=== PATIENT | male | born 2000 | race Caucasian/White ===

== ENCOUNTER 2021-04-12 18:21 | Emergency (ER) | payer MEDICAID, SELFPAY ==
--- NOTE | 2021-04-12 18:15 | RT.EKG_ITS ---
APPROVED REPORT Exam: Resting ECG Reason for Exam: syncope Patient Location: E HR:83 bpm ECG Measurements Heart Rate 83 AXIS VT 157 P 66 QRSd 91 QRS 83 QT 371 T 63 QTc 435 Conclusion Sinus rhythm early repol pattern.
[2021-04-12 18:22] VITALS: BP 114/66; PULSE 82; RESP 18; TEMP 37.1; O2SAT 100
--- NOTE | 2021-04-12 18:34 | ED.GENADUL_ITS ---
Discharge Plan Disposition Patient Disposition: HOME Condition: Improving Discharge Details Clinical Impression: Syncope Primary Care Provider: Unknown,Unknown ED Provider: Manjinder Pollack Home Meds and New Rx's Prescriptions: No Action No Known Home Meds RF: 0 Discharge Instructions Instructions: Syncope (ED) Additional Instructions: Home to rest this evening. Small, frequent fluids to maintain good hydration. Your work-up in the emergency department tonight included a chest x-ray, EKG, and blood work including cardiac troponin. You had a strep test that was negative. You underwent Covid PCR testing which is pending. We will call you with your results. Medical Decision Making <Manjinder Pollack MD - Last Filed: 04/12/21 19:51> 20-year-old male presents from home via EMS. He has had a sore throat for 2 to 3days general malaise, but has not had a cough or shortness of breath. Denies change to taste or smell. He was pouring some tea at home when he felt lightheaded and sank to ground. Did not have any seizure like activity, no tongue biting was reported, no loss of bowel continence, and he denies chest pain, palpitations, or shortness of breath. Patient arrives ER improved, alert and interactive. His vital signs are unremarkable. IV fluid bolus initiated, screening EKG obtained patient for laboratory testing. White blood cell count is 3.6, hematocrit 35.7, platelets 121. Chemistries reassuring, BUN 10, creatinine 1.1. Troponin negative. SARS-CoV-2 pending. Chest x-ray without evidence of cardiomegaly. No acute disease. Please see the formal radiology report Patient is stable and improving. Consistent with vagal mediated syncope. Do not feel further work-up is required at this time. <Sam Diaz MD - Last Filed: 04/12/21 21:26> Care was signed out by Dr. Pollack with plan to follow-up on urinalysis and discharge patient with outpatient follow-up. UA was reviewed and does have a few ketones which I suspect is secondary to dehydration. He did have a mild anion gap on initial blood work. Patient received IVF and is tolerating oral fluids. He was encouraged to continue to maintain adequate hydration. On reassessment, patient feeling much better. BP improved. Disposition decision was made weighing the risks and benefits of hospitalization versus outpatient treatment, the risk for further decompensation, and the patient's wishes. The patient was stable and requested discharge. Prior to discharge, my usual and customary return precautions were reviewed with the patient - this included follow-up instructions and reason to return to the emergency department if condition worsens, does not improve as expected, or other new concerns arise. HPI <Manjinder Pollack MD - Last Filed: 04/12/21 19:51> General Mode of arrival: EMS . Date/Time Provider Initiated Documentation: 04/12/21 18:22 . Limitations to Documentation: no limitations . Information obtained by: patient and EMS . History of Present Illness 20 year old M presents to the emergency department with the chief complaint of Sore throat and syncopal event at home, described as moderate, Quality is described as constant, and is localized to the mouth. Patient reports no r adiation. Patient started experiencing this day(s) and it has been constant. No relieving factors improve symptom(s), No exacerbating factors reported . Patient notes denies chest pain, cough, fever/chills, headaches, loss of appetite, nausea/vomiting, shortness of breath and weakness. Patient did receive the following treatments prior to arrival, none Related Data Home Medications Medication Instructions Recorded Confirmed Unknown [No Known Home Meds] 04/12/21 04/12/21 Allergies Allergy/AdvReac Type Severity Reaction Status Date / Time No Known Allergies Allergy Unverified 04/12/21 19:05 General Stated Complaint: Dizzy/Sync SHANT: 3 Review of Systems <Manjinder Pollack MD - Last Filed: 04/12/21 19:51> Narrative: 6 systems reviewed and otherwise negative PFSH <Manjinder Pollack MD - Last Filed: 04/12/21 19:51> All Active Problems (Updated 04/12/21 @ 19:28 by Manjinder Pollack MD) Syncope (Chronic) Social History Smoking/Tobacco Use Status: Never Smoking risk assessment performed?: Yes Alcohol Intake: never Drug use: Never Substance use type: does not use Do you feel safe at home: Yes Do you feel safe in your relationship?: Yes Exam <Manjinder Pollack MD - Last Filed: 04/12/21 19:51> Narrative Exam Narrative: GEN: awake, alert, oriented 3. Pleasant, well groomed, interactive. HEAD: Normocephalic, atraumatic ENT: Mucous membranes dry, oropharynx with note of mild erythema of the tonsillar pillars, no swelling, no exudate, tympanic membranes occluded by cerumen bilaterally, External ear exam unremarkable EYES: PERRL, EOMI NECK: Full ROM, no CAPRICE, no menigismus CHEST/RESP: Nontender, clear to auscultation bilateral, no wheeze/rhonchi/rales CARDIOVASCULAR: RRR, no murmur, rub tex. 2+ Rad pulse bilateral ABDOMEN: Soft, nontender, no mass. +Bowel sounds EXT: Full ROM, no edema, no rash Neuro: Grossly normal neurologic exam, conversant, interactive. Psych: Speech fluent, thoughts congruent, affect normal Course <Manjinder Pollack MD - Last Filed: 04/12/21 19:51> Vital Signs Vital signs: Vital Signs Temperature 37.1 C 04/12/21 18:22 Pulse 82 04/12/21 18:22 Respiratory Rate 18 04/12/21 18:22 Blood Pressure 114/66 04/12/21 18:22 Pulse Oximetry 100 04/12/21 18:22 Temperature 37.1 C 04/12/21 18:22 Temperature Source Tympanic 04/12/21 18:22 Pulse 82 04/12/21 18:22 Respiratory Rate 18 04/12/21 18:22 Respiratory Effort 04/12/21 18:26 Respiratory Depth Normal 04/12/21 18:26 Respiratory Pattern Normal 04/12/21 18:26 Blood Pressure 114/66 04/12/21 18:22 Blood Pressure Position Supine 04/12/21 18:22 Pulse Oximetry 100 04/12/21 18:22 Oxygen Delivery Method Room Air 04/12/21 18:22 Oxygen Flow Rate 0 04/12/21 18:22 Pain Level 3 04/12/21 18:22
[2021-04-12 18:46] LABS: Abs Immature Grans 0.01 10^3/uL (0.0-0.06); Absolute Basophil Count 0.02 10^3/uL (0.0-0.2); Absolute Eosinophil Count 0.02 10^3/uL (0.0-0.7); Absolute Lymphocyte Count 0.87 10^3/uL (1.2-3.4); Absolute Monocyte Count 0.47 10^3/uL (0.1-0.8); Absolute Neutrophil Count 2.26 10^3/uL (1.2-6.7); Basophils % 0.5; Eosinophils % 0.5; HCT 35.7 % (40.0-50.0); HGB 11.7 g/dL (13.5-17.5); Immature Grans % 0.3; Lymphocytes % 23.8; MCH 28.7 pg (27.0-33.0); MCHC 32.8 % (32.0-36.0); MCV 87.5 fL (80-95); MPV 11.3 fL (8.0-11.0); Monocytes % 12.9; Nucleated RBC 0 %; Platelet Count 121 10^3/uL (130-400); RBC 4.08 10^6/uL (4.36-5.78); RDW 12.8 % (11.8-14.1); RDW-SD 41.2 fL; WBC 3.65 10^3/uL (4.4-10.8)
--- NOTE | 2021-04-12 19:00 | DI.RAD_ITS ---
Exam(s) XR PORTABLE CHEST AP EXAM: XR PORTABLE CHEST AP CLINICAL HISTORY: syncope TECHNIQUE: 2D digital imaging was performed of the chest. One image was obtained. An AP view was ob tained. COMPARISON: No exams were available for comparison FINDINGS: MEDIASTINUM: Normal. HEART: Normal. PULMONARY VASCULATURE: Normal. LUNGS: Clear. PLEURAL SPACE: No pleural effusion or pneumothorax. BONE:Within normal limits for the patient's age. OTHER FINDINGS:Normal. IMPRESSION: No acute pulmonary findings. DATA REPOSITORY: RADIATION DOSE DELIVERED:
[2021-04-12 19:06] LABS: ALT 27 U/L (16-63); AST 19 U/L (15-37); Albumin 3.8 g/dL (3.4-5.0); Alkaline Phosphatase 52 U/L (46-116); Anion Gap 12.3 mmol/L (3-11); BUN 10 mg/dL (7-18); Bilirubin, Total 0.5 mg/dL (0.2-1.0); CO2 21.7 mmol/L (21.0-32.0); CREATININE 1.1 mg/dL (0.70-1.30); Calcium 7.9 mg/dL (8.5-10.1); Chloride 105 mmol/L (98-107); Glucose 112 mg/dL (74-106); Magnesium 1.9 mg/dL (1.8-2.4); Potassium 3.7 mmol/L (3.5-5.1); Sodium 139 mmol/L (136-145); Total Protein 6.8 g/dL (6.4-8.2); Troponin I < 50 ng/L (<or=60)
[2021-04-12 19:23] VITALS: BP 115/67; PULSE 76; RESP 18; O2SAT 99
--- NOTE | 2021-04-12 19:50 | DI.VRAD_ITS ---
PROCEDURE INFORMATION: Exam: XR Chest Exam date and time: 04/12/2021 7:10 PM Age: 20 years old Clinical indication: Other: Syncope TECHNIQUE: Imaging protocol: XR of the chest. Views: 1 view. COMPARISON: No relevant prior studies available. FINDINGS: Lungs: The lungs are minimally hyperinflated likely due to large inspiratory effort. No infiltrate. Pleural spaces: No pleural effusion or pneumothorax. Heart/Mediastinum: There is a normal heart size, left descending thoracic aorta and midline trachea. Bones/joints: No acute osseous injury or underlying osseous mass. There is gentle leftward curvature of the thoracolumbar spine. IMPRESSION: No acute cardiopulmonary findings. Dictated and Authenticated by: Joce Collier MD. Ordering:THONY Dunbar MD
[2021-04-12 20:13] LABS: Bilirubin Negative (Negative); Blood Negative (Negative); Clarity Clear (Clear); Glucose Negative (Negative); Ketones 15 mg/dL (Negative); Leukocyte Esterase Negative (Negative); Nitrite Negative (Negative); Specific Gravity >= 1.030 (1.005-1.025); Urobilinogen 0.2 EU/dL (Up TO 0.2)
[2021-04-12 20:22] LABS: Bacteria Negative HPF (Negative); C & S Indicated? Yes; Casts Negative LPF (Negative); Crystals Negative HPF (Negative); Epithelial Cells Few HPF (Negative); Mucus Moderate (Negative); Other Cells Negative (Negative); RBC 0-2 HPF (0-2)
[2021-04-12 20:33] VITALS: BP 122/75; PULSE 82; RESP 18; O2SAT 98
[2021-04-14 22:02] LABS: COVID-19 RT-PCR UVMMC Result Positive (Negative)
--- NOTE | 2021-04-15 08:52 | W.ED.FU ---
Result received - covid positive. I called patient and reviewed result with him. Reviewed usual and customary COVID recommendations.
== END 2021-04-12 21:39 | disposition home or self-care (01) ==
PROVIDERS: Emergency Provider Emergency Medicine; PCP Internal Medicine
DX: U07.1 COVID-19 (principal); R55 Syncope and collapse; J02.9 Acute pharyngitis, unspecified
CPT/HCPCS: 80053; 87880; 93005; 99283; 99284; U0003; 71045; 81003; 81015; 83735; 84484; 85025; 87081; 87086; 93010